=== PATIENT | female | born 2000 | race Caucasian/White ===

== ENCOUNTER 2023-02-10 16:39 | Emergency (ER) | payer MEDICAID ==
[~2023-02-10] VITALS: Ht 139.7 cm; Wt 63.5 kg
[2023-02-10] MEDS ORDERED: IBUPROFEN 600 MG TABLET PO ONE (17:00)
[2023-02-10] MEDS ORDERED: IBUPROFEN 600 MG TABLET ONE (17:13)
[2023-02-10 18:13] VITALS: BP 130/72; TEMP 98.4; O2SAT 99
== END 2023-02-10 18:13 | disposition home or self-care (01) ==
LOC: ER 16:50
DX: M25.571 Pain in right ankle and joints of right foot (principal); Z60.2 Problems related to living alone; W01.0XXA Fall on same level from slipping, tripping and stumbling without subsequent striking against object, initial encounter; Y93.89 Activity, other specified; Y92.89 Other specified places as the place of occurrence of the external cause; Y99.8 Other external cause status
CPT/HCPCS: 73610-TC; 73630-TC